=== PATIENT | male | born 1995 | race Caucasian/White ===

== ENCOUNTER 2019-09-16 07:42 | Emergency (ER) | payer OTHER ==
[~2019-09-16] VITALS: Ht 190.5 cm; Wt 81.6 kg
== END 2019-09-16 09:19 | disposition home or self-care (01) ==
LOC: ER 07:42
DX: J03.80 Acute tonsillitis due to other specified organisms (principal); H66.003 Acute suppurative otitis media without spontaneous rupture of ear drum, bilateral

== ENCOUNTER 2019-10-28 16:17 | Emergency (ER) | payer OTHER ==
[~2019-10-28] VITALS: Ht 190.5 cm; Wt 81.6 kg
== END 2019-10-28 20:37 | disposition home or self-care (01) ==
LOC: ER 16:17
DX: S16.1XXA Strain of muscle, fascia and tendon at neck level, initial encounter (principal); V49.69XA Unspecified car occupant injured in collision with other motor vehicles in traffic accident, initial encounter; Y93.89 Activity, other specified; Y92.488 Other paved roadways as the place of occurrence of the external cause; Y99.8 Other external cause status

== ENCOUNTER 2020-03-21 13:49 | Emergency (ER) | payer OTHER ==
[~2020-03-21] VITALS: Ht 190.5 cm; Wt 84.8 kg
[2020-03-21] MEDS ORDERED: KETO10TA2 PO (15:21)
== END 2020-03-21 15:35 | disposition home or self-care (01) ==
LOC: ER 13:49
DX: S90.31XA Contusion of right foot, initial encounter (principal); W22.8XXA Striking against or struck by other objects, initial encounter; Y93.89 Activity, other specified; Y92.098 Other place in other non-institutional residence as the place of occurrence of the external cause; Y99.8 Other external cause status

== ENCOUNTER → 2024-08-17 | Emergency (ER) | payer OTHER ==
[~2024-08-17] VITALS: Ht 185.4 cm; Wt 89.8 kg
[~2024-08-17] MED LIST: ANUSOL-HC30 G2 TOP; DEXAMETHASONE SODIUM PHOSPHATE 4 MG/ML VIAL IM ONE; KETO10TA2 PO; ZYRTEC10 M3 PO
[2024-08-17 17:54] LABS: HEMATOCRIT 43.2 % (39.0-48.0); HEMOGLOBIN 15.1 g/dL (13-16.00); MEAN CORPUSCULAR HEMOGLOBIN 32.6 pg (27.00-32.0); PLATELET COUNT 297 K/uL (150-450); RED BLOOD COUNT 4.65 M/uL (4.00-6.00); RED CELL DISTRIBUTION WIDTH 13.2 % (11.5-14.5)
== END | disposition home or self-care (01) ==
LOC: ER 13:31
PROVIDERS: Preventive Medicine Public Health & General Preventive Medicine
DX: R21 Rash and other nonspecific skin eruption (principal); T78.40XA Allergy, unspecified, initial encounter